=== PATIENT | female | born 1935 | race Caucasian/White ===

== ENCOUNTER → 2017-01-20 | Outpatient (CLI) | payer OTHER ==
[~2017-01-20] MED LIST: ATEN50TA PO; HYDR25TA4 PO; LEVO112T4 PO
[2017-01-20 15:53] LABS: BUN/Creatinine Ratio 20.5; Bilirubin, Total 0.5 mg/dL (0.2-1.0); Calcium 9.5 mg/dL (8.5-10.1); Potassium 3.6 mmol/L (3.5-5.1); Total Protein 7.7 g/dL (6.4-8.2)
== END | disposition home or self-care (01) ==
LOC: LAB 15:00
DX: C73 Malignant neoplasm of thyroid gland (principal); E03.9 Hypothyroidism, unspecified
CPT/HCPCS: 36415; 80053; 84439; 84443; 86800

== ENCOUNTER 2017-05-27 18:08 | Emergency (ER) | payer OTHER ==
[~2017-05-27] VITALS: Ht 167.6 cm; Wt 68.0 kg
[~2017-05-27 18:08] MED LIST changes: +CALC0.5C PO
[2017-05-27 20:10] LABS: Basophils # (auto) 0 uL; Eosinophils # (auto) 0.1 uL; Eosinophils % (auto) 0.9 % (0.0-7.0); Mean Corpuscular Volume 64.6 fL (80.0-100.0); Monocytes # (auto) 0.1 uL; Neutrophils # (auto) 6.7 uL; White Blood Cell 7.1 10^3/uL (4.4-10.8)
[2017-05-27 20:17] LABS: Basophils % (auto) 0.1 % (0.0-2.0); Hematocrit 36.9 % (36.0-46.0); Hemoglobin 11.8 g/dL (12.2-16.2); Lymphocytes # (auto) 0.3 uL; Lymphocytes % (auto) 3.7 % (10.0-50.0); Mean Corpuscular Hemoglobin 20.6 pg (28.0-32.0); Mean Corpuscular Hgb Conc. 31.9 g/dL (32.0-36.0); Monocytes % (auto) 1.6 % (0.0-12.0); Neutrophils % (auto) 93.7 % (37.0-80.0); Platelet Count (auto) 217 10^3/uL (140-450); Red Blood Cells 5.71 10^6/uL (4.0-5.20); Red Cell Distribution Width 17.5 % (11.8-14.3)
[2017-05-27 20:19] LABS: Potassium 3.8 mmol/L (3.5-5.1)
[2017-05-27 20:20] LABS: Albumin 3.3 g/dL (3.4-5.0); BUN/Creatinine Ratio 23.8; Calcium 8.2 mg/dL (8.5-10.1)
[2017-05-27 20:22] LABS: Bilirubin, Total 0.7 mg/dL (0.2-1.0); Total Protein 6.5 g/dL (6.4-8.2)
[2017-05-27 20:24] LABS: INR 1.04 (0.9-1.15); Partial Thromboplastin Time 25.9 sec (22.64-33.71); Prothrombin Time 11.3 sec (9.37-12.3)
[2017-05-28 07:27] VITALS: BP 105/47
== END 2017-05-28 07:43 | disposition short-term general hospital (02) ==
LOC: EDBD 18:08 → ER 18:16
DX: I62.9 Nontraumatic intracranial hemorrhage, unspecified (principal); R42 Dizziness and giddiness; I48.91 Unspecified atrial fibrillation; I10 Essential (primary) hypertension; E07.9 Disorder of thyroid, unspecified; Z86.73 Personal history of transient ischemic attack (TIA), and cerebral infarction without residual deficits; Z90.49 Acquired absence of other specified parts of digestive tract; Z90.710 Acquired absence of both cervix and uterus
CPT/HCPCS: 36415; 70450; 80053; 82962; 83880; 84484; 85025; 85379; 85610; 85730; 93005; 99285; J7030

== ENCOUNTER 2017-07-21 10:44 | Inpatient (IN) | payer OTHER ==
[~2017-07-21] VITALS: Ht 165.1 cm; Wt 58.2 kg
[2017-07-21 11:45] LABS: Mean Corpuscular Hemoglobin 20.2 pg (28.0-32.0); Platelet Count (auto) 206 10^3/uL (140-450); Red Blood Cells 5.87 10^6/uL (4.0-5.20)
[2017-07-21 11:47] LABS: Hematocrit 37.3 % (36.0-46.0); Hemoglobin 11.8 g/dL (12.2-16.2); Mean Corpuscular Hgb Conc. 31.7 g/dL (32.0-36.0); Mean Corpuscular Volume 63.6 fL (80.0-100.0); Red Cell Distribution Width 18.7 % (11.8-14.3); White Blood Cell 5.5 10^3/uL (4.4-10.8)
[2017-07-21 11:49] LABS: Basophils % (manual) 0 (0.0-2.0); Blast Cells 0; Metamyelocytes % 0; Myelocytes % 0; Promyelocytes % 0; Reactive Lymphocytes 0
[2017-07-21 12:04] LABS: Prothrombin Time 10.7 sec (9.27-12.13)
[2017-07-21 12:07] LABS: BUN/Creatinine Ratio 14.5; Potassium 3.6 mmol/L (3.5-5.1)
[2017-07-21 12:08] LABS: Albumin 3.7 g/dL (3.4-5.0); Bilirubin, Total 0.6 mg/dL (0.2-1.0); Calcium 9.1 mg/dL (8.5-10.1); Magnesium 2.4 mg/dL (1.6-2.6); Total Protein 7.1 g/dL (6.4-8.2)
[2017-07-21 12:27] LABS: Band Neutrophils % (manual) 1; Eosinophils % (manual) 5 (0-7); Lymphocytes % (manual) 35 (10.0-50.0); Monocytes % (manual) 4 (0-12)
[2017-07-21] MEDS ORDERED: MORPHINE SULFATE 10 MG/ML INJ 1ML SDV IV PRN (12:30)
[2017-07-21] MEDS ORDERED: NITROGLYCERIN 0.4 MG SL TAB SL PRN (12:30)
[2017-07-21] MEDS ORDERED: ONDANSETRON HCL 4 MG/2 ML VIAL IV PRN (12:30)
[2017-07-21] MEDS ORDERED: SODIUM CHLORIDE 0.9% 1,000 ML IV SCH (12:30)
[2017-07-21] MEDS ORDERED: ACETAMINOPHEN 325 MG TAB PO PRN (12:30)
[2017-07-21 13:17] LABS: Urine Bacteria FEW /hpf (None Seen); Urine Blood Negative /uL (Negative); Urine Mucus FEW (None Seen); Urine Specific Gravity 1.008 (1.001-1.035); Urine WBC 1 /hpf (0 - 5)
[2017-07-21] MEDS: ASPIRIN-DIPYRIDAMOLE (25/200MG) CAPSULE PO SCH ×2 (13:19→22:12)
[2017-07-21 18:24] VITALS: BP 143/72
[2017-07-21 20:00] VITALS: BP 143/57
[2017-07-21 22:00] VITALS: BP 143/57
[2017-07-21] MEDS ORDERED: ATORVASTATIN 20 MG TAB PO SCH (22:00)
[2017-07-22 05:00] VITALS: BP 127/74
[2017-07-22] MEDS ORDERED: LEVOTHYROXINE SODIUM 100 MCG TAB PO SCH (07:00)
[2017-07-22 07:16] LABS: Basophils # (auto) 0 uL; Mean Corpuscular Hemoglobin 20.5 pg (28.0-32.0); Red Blood Cells 5.86 10^6/uL (4.0-5.20); White Blood Cell 6.5 10^3/uL (4.4-10.8)
[2017-07-22 07:18] LABS: Basophils % (auto) 0.5 % (0.0-2.0); Eosinophils # (auto) 0.9 uL; Eosinophils % (auto) 13.4 % (0.0-7.0); Hematocrit 37.4 % (36.0-46.0); Lymphocytes % (auto) 31.2 % (10.0-50.0); Mean Corpuscular Hgb Conc. 32.1 g/dL (32.0-36.0); Mean Corpuscular Volume 63.8 fL (80.0-100.0); Monocytes # (auto) 0.6 uL; Monocytes % (auto) 8.7 % (0.0-12.0); Neutrophils % (auto) 46.2 % (37.0-80.0); Nucleated Red Blood Cells % 0.1 %; Platelet Count (auto) 198 10^3/uL (140-450); Red Cell Distribution Width 18.3 % (11.8-14.3)
[2017-07-22 07:24] LABS: BUN/Creatinine Ratio 16.1; Calcium 9.2 mg/dL (8.5-10.1); Potassium 3.5 mmol/L (3.5-5.1)
[2017-07-22 09:00] VITALS: BP 137/65
[2017-07-22] MEDS ORDERED: ATENOLOL 50 MG TAB PO SCH (10:00)
[2017-07-22] MEDS: ASPIRIN-DIPYRIDAMOLE (25/200MG) CAPSULE PO SCH (10:31)
[2017-07-22 13:00] VITALS: BP 145/54
[2017-07-22] MEDS ORDERED: AGG25C PO (16:02)
== END 2017-07-22 16:28 | disposition home or self-care (01) | DRG 65 ==
LOC: ER 10:50 → TELE 10:51 → TELE-CENTR 15:23
PROVIDERS: ADMIT Internal Medicine; ATTEND Internal Medicine
DX: I63.9 Cerebral infarction, unspecified (principal); G81.94 Hemiplegia, unspecified affecting left nondominant side; I48.91 Unspecified atrial fibrillation; D64.9 Anemia, unspecified; N18.3 Chronic kidney disease, stage 3 (moderate); I12.9 Hypertensive chronic kidney disease with stage 1 through stage 4 chronic kidney disease, or unspecified chronic kidney disease; Z53.29 Procedure and treatment not carried out because of patient's decision for other reasons; E78.5 Hyperlipidemia, unspecified; E03.9 Hypothyroidism, unspecified; Z79.899 Other long term (current) drug therapy; Z80.1 Family history of malignant neoplasm of trachea, bronchus and lung; Z82.49 Family history of ischemic heart disease and other diseases of the circulatory system; Z85.850 Personal history of malignant neoplasm of thyroid; Z90.710 Acquired absence of both cervix and uterus; Z88.0 Allergy status to penicillin; Z90.49 Acquired absence of other specified parts of digestive tract; Z90.89 Acquired absence of other organs; Z85.89 Personal history of malignant neoplasm of other organs and systems; H91.93 Unspecified hearing loss, bilateral
CPT/HCPCS: 36415; 70450; 70551; 80048; 80053; 81001; 83735; 84484; 85007; 85025; 85027; 85379; 85610; 85730; 87086; 93005; 94761; 97163

== ENCOUNTER 2019-06-02 14:06 | Inpatient (IN) | payer OTHER ==
[~2019-06-02] VITALS: Ht 160 cm; Wt 59.5 kg
[~2019-06-02 14:06] MED LIST changes: +AGG25C PO; +ATOR20TA50 PO; +CALC0.25 PO; -CALC0.5C PO; -LEVO112T4 PO; +LEVO88TA4 PO
[2019-06-02 15:10] LABS: Basophils # (auto) 0 10 ^3/uL (0-0.2); Eosinophils # (auto) 0 10 ^3/uL (0-0.8); Eosinophils % (auto) 0.1 % (0.0-7.0); Hemoglobin 12.6 g/dL (12.2-16.2); Lymphocytes # (auto) 2.2 10 ^3/uL (0.4-5.4); Neutrophils # (auto) 6.5 10 ^3/uL (1.6-8.6)
[2019-06-02 15:12] LABS: Basophils % (auto) 0.3 % (0.0-2.0); Hematocrit 39.2 % (36.0-46.0); Lymphocytes % (auto) 24.3 % (10.0-50.0); Mean Corpuscular Hemoglobin 20.9 pg (28.0-32.0); Mean Corpuscular Hgb Conc. 32.2 g/dL (32.0-36.0); Mean Corpuscular Volume 64.8 fL (80.0-100.0); Monocytes # (auto) 0.4 10 ^3/uL (0-1.3); Monocytes % (auto) 4.3 % (0.0-12.0); Nucleated Red Blood Cells % 0.2 %; Platelet Count (auto) 202 10^3/uL (140-450); Red Blood Cells 6.05 10^6/uL (4.0-5.20); Red Cell Distribution Width 17.9 % (11.8-14.3); White Blood Cell 9.1 10^3/uL (4.4-10.8)
[2019-06-02 15:29] LABS: Albumin 3.7 g/dL (3.4-5.0); Calcium 8.1 mg/dL (8.5-10.1); Potassium 3.4 mmol/L (3.5-5.1)
[2019-06-02 15:32] LABS: Bilirubin, Total 0.8 mg/dL (0.2-1.0); Total Protein 6.8 g/dL (6.4-8.2)
[2019-06-02] MEDS ORDERED: MORPHINE SULF INJ 2 MG/ML SYRINGE 1ML IV PRN ×2 (19:00)
[2019-06-02] MEDS ORDERED: ONDANSETRON HCL 4 MG/2 ML VIAL IV PRN (19:00)
[2019-06-02] MEDS ORDERED: SOD CHL 0.9%/ KCL 20MEQ 1,000 ML IV ONE (19:00)
[2019-06-02] MEDS ORDERED: ACETAMINOPHEN 500 MG TAB PO PRN (19:00)
[2019-06-02] MEDS ORDERED: HYDROcodone-ACET 5/325MG TAB PO PRN (19:00)
[2019-06-02] MEDS ORDERED: NITROGLYCERIN 0.4 MG SL TAB SL PRN (19:00)
[2019-06-02] MEDS ORDERED: hydrALAZINE HCL 20 MG/ML VL IV PRN (19:00)
[2019-06-02 20:54] LABS: Urine Bacteria FEW /hpf (None Seen); Urine Blood Negative /uL (Negative); Urine Hyaline Cast MOD /lpf (0 - 2); Urine Mucus FEW (None Seen); Urine Specific Gravity 1.016 (1.001-1.035); Urine WBC 54 /hpf (0 - 5)
[2019-06-02] MEDS: SODIUM CHLORIDE 0.9% 1,000 ML IV SCH (22:00)
[2019-06-02] MEDS: cefTRIAXone 1GM/50ML D5W 50 ML IV SCH (23:02)
[2019-06-02] MEDS: ASPIRIN-DIPYRIDAMOLE (25/200MG) CAPSULE PO SCH (23:03)
[2019-06-03] VITALS: BP 117/66
[2019-06-03 05:00] VITALS: BP 113/68
[2019-06-03 05:45] LABS: Basophils # (auto) 0 10 ^3/uL (0-0.2); Basophils % (auto) 0.1 % (0.0-2.0); Monocytes # (auto) 0.8 10 ^3/uL (0-1.3)
[2019-06-03 05:49] LABS: Eosinophils # (auto) 0.1 10 ^3/uL (0-0.8); Eosinophils % (auto) 0.5 % (0.0-7.0); Hematocrit 33.6 % (36.0-46.0); Hemoglobin 11.1 g/dL (12.2-16.2); Lymphocytes # (auto) 3.1 10 ^3/uL (0.4-5.4); Lymphocytes % (auto) 29.1 % (10.0-50.0); Mean Corpuscular Hemoglobin 21.3 pg (28.0-32.0); Mean Corpuscular Volume 64.6 fL (80.0-100.0); Monocytes % (auto) 7.2 % (0.0-12.0); Neutrophils # (auto) 6.8 10 ^3/uL (1.6-8.6); Neutrophils % (auto) 63.1 % (37.0-80.0); Nucleated Red Blood Cells % 0.4 %; Platelet Count (auto) 185 10^3/uL (140-450); Red Blood Cells 5.19 10^6/uL (4.0-5.20); Red Cell Distribution Width 17.9 % (11.8-14.3); White Blood Cell 10.8 10^3/uL (4.4-10.8)
[2019-06-03 06:11] LABS: Potassium 3.3 mmol/L (3.5-5.1)
[2019-06-03 06:15] LABS: BUN/Creatinine Ratio 14.4; Calcium 7.3 mg/dL (8.5-10.1)
[2019-06-03] MEDS: SODIUM CHLORIDE 0.9% 1,000 ML IV SCH ×2 (08:50→18:44)
[2019-06-03 08:59] VITALS: BP 104/51
[2019-06-03] MEDS ORDERED: ASPirin 81 mg TAB PO SCH (10:00)
[2019-06-03] MEDS: cefTRIAXone 1GM/50ML D5W 50 ML IV SCH (10:07)
[2019-06-03] MEDS: ASPIRIN-DIPYRIDAMOLE (25/200MG) CAPSULE PO SCH ×2 (10:07→22:01)
[2019-06-03 13:18] VITALS: BP 102/53
[2019-06-03] MEDS ORDERED: POTASSIUM EFFERVESENT TAB 25 MEQ PO ONE (14:45)
[2019-06-03 16:57] VITALS: BP 119/62
[2019-06-03 22:00] VITALS: BP 128/67
[2019-06-03] MEDS ORDERED: ATORVASTATIN 20 MG TAB PO SCH (22:00)
[2019-06-04 05:00] VITALS: BP 139/67
[2019-06-04] MEDS: SODIUM CHLORIDE 0.9% 1,000 ML IV SCH ×2 (05:00→14:00)
[2019-06-04 08:00] VITALS: BP 133/58
[2019-06-04 09:00] VITALS: BP 133/58
[2019-06-04 09:53] LABS: Folate (Folic Acid) 22.42 ng/mL (5.38-24)
[2019-06-04] MEDS: ASPIRIN-DIPYRIDAMOLE (25/200MG) CAPSULE PO SCH (10:08)
[2019-06-04] MEDS: cefTRIAXone 1GM/50ML D5W 50 ML IV SCH (10:08)
[2019-06-04] MEDS ORDERED: LEVO500T21 PO (11:41)
[2019-06-04 13:00] VITALS: BP 153/81
[2019-06-04 17:27] VITALS: BP 139/75
[2019-06-04 18:00] VITALS: BP 152/71
== END 2019-06-04 19:05 | disposition home health service (06) | DRG 682 ==
LOC: EDBD 14:06 → ER 14:06 → EDSEX 14:06 → TELE 14:07 → TELE-WESTW 23:17
PROVIDERS: ADMIT Hospitalist; ATTEND Internal Medicine
DX: N17.9 Acute kidney failure, unspecified (principal); G92 Toxic encephalopathy; N39.0 Urinary tract infection, site not specified; D68.59 Other primary thrombophilia; E87.6 Hypokalemia; I48.0 Paroxysmal atrial fibrillation; N18.3 Chronic kidney disease, stage 3 (moderate); I13.10 Hypertensive heart and chronic kidney disease without heart failure, with stage 1 through stage 4 chronic kidney disease, or unspecified chronic kidney disease; E78.5 Hyperlipidemia, unspecified; E03.9 Hypothyroidism, unspecified; G30.9 Alzheimer's disease, unspecified; F02.80 Dementia in other diseases classified elsewhere, unspecified severity, without behavioral disturbance, psychotic disturbance, mood disturbance, and anxiety; Z82.49 Family history of ischemic heart disease and other diseases of the circulatory system; Z86.73 Personal history of transient ischemic attack (TIA), and cerebral infarction without residual deficits; Z85.850 Personal history of malignant neoplasm of thyroid; Z90.710 Acquired absence of both cervix and uterus; Z80.1 Family history of malignant neoplasm of trachea, bronchus and lung; Z79.899 Other long term (current) drug therapy; Z53.20 Procedure and treatment not carried out because of patient's decision for unspecified reasons; Z88.0 Allergy status to penicillin; Z88.2 Allergy status to sulfonamides
CPT/HCPCS: 36415; 70450; 70551; 71045; 80048; 80053; 81001; 82607; 82746; 82962; 84443; 85025; 87086; 93005; 93306; 93886; 97110; 97116; 97163; 97530; G0378; J0696

== ENCOUNTER 2020-04-05 10:50 | Emergency (ER) | payer OTHER ==
[~2020-04-05] VITALS: Ht 160 cm; Wt 54.4 kg
[~2020-04-05 10:50] MED LIST changes: +LEVO500T31 PO
[2020-04-05 10:52] VITALS: BP 153/69
== END 2020-04-05 14:14 | disposition home or self-care (01) ==
LOC: ER 10:50
DX: S92.354A Nondisplaced fracture of fifth metatarsal bone, right foot, initial encounter for closed fracture (principal); Z88.0 Allergy status to penicillin; Z88.2 Allergy status to sulfonamides; X50.1XXA Overexertion from prolonged static or awkward postures, initial encounter; Y93.89 Activity, other specified; Y92.89 Other specified places as the place of occurrence of the external cause; Y99.8 Other external cause status
CPT/HCPCS: 29515; 73630

== ENCOUNTER 2020-08-13 20:03 | Emergency (ER) | payer OTHER ==
[~2020-08-13] VITALS: Ht 160 cm; Wt 58.5 kg
[2020-08-13 20:18] VITALS: BP 119/56
== END 2020-08-13 23:10 | disposition left against medical advice (07) ==
LOC: ER 20:08
DX: M25.572 Pain in left ankle and joints of left foot (principal); R22.42 Localized swelling, mass and lump, left lower limb; Z53.21 Procedure and treatment not carried out due to patient leaving prior to being seen by health care provider; X50.9XXA Other and unspecified overexertion or strenuous movements or postures, initial encounter; Y93.89 Activity, other specified; Y92.89 Other specified places as the place of occurrence of the external cause; Y99.8 Other external cause status
CPT/HCPCS: 73610

== ENCOUNTER 2022-03-29 15:45 | Inpatient (IN) | payer OTHER ==
[~2022-03-29] VITALS: Ht 2.5 cm; Wt 58.6 kg
[2022-03-29 21:23] VITALS: BP 138/72
[2022-03-29] MEDS ORDERED: HYDROcodone-ACET 5/325MG TAB PO PRN (21:30)
[2022-03-29] MEDS ORDERED: ONDANSETRON HCL 4 MG/2 ML VIAL IV PRN (21:30)
[2022-03-29] MEDS ORDERED: SODIUM CHLORIDE 0.9% 1,000 ML IV SCH (21:30)
[2022-03-29] MEDS ORDERED: DOCUSATE SOD 100 MG CAP PO PRN (21:30)
[2022-03-29] MEDS ORDERED: ACETAMINOPHEN 325 MG TAB PO PRN (21:30)
[2022-03-29 22:34] LABS: Basophils # (auto) 0.1 10 ^3/uL (0-0.2); Eosinophils # (auto) 0.3 10 ^3/uL (0-0.8); Eosinophils % (auto) 2.4 % (0.0-7.0); Hematocrit 32.1 % (36.0-46.0); Hemoglobin 10.4 g/dL (12.2-16.2); Lymphocytes % (auto) 16.6 % (10.0-50.0); Mean Corpuscular Hemoglobin 20.4 pg (28.0-32.0); Mean Corpuscular Hgb Conc. 32.5 g/dL (32.0-36.0); Mean Corpuscular Volume 62.7 fL (80.0-100.0); Monocytes % (auto) 8.5 % (0.0-12.0); Neutrophils # (auto) 8.5 10 ^3/uL (1.6-8.6); Neutrophils % (auto) 71.5 % (37.0-80.0); Nucleated Red Blood Cells % 0.2 %; Red Blood Cells 5.12 10^6/uL (4.0-5.20); White Blood Cell 11.9 10^3/uL (4.4-10.8)
[2022-03-29 22:52] LABS: Albumin 2.7 g/dL (3.4-5.0); BUN/Creatinine Ratio 41.1; Calcium 6.8 mg/dL (8.5-10.1)
[2022-03-29 22:55] LABS: Total Protein 5.3 g/dL (6.4-8.2)
[2022-03-29 22:58] LABS: Potassium 2.9 mmol/L (3.5-5.1)
[2022-03-29] MEDS: ASPIRIN-DIPYRIDAMOLE (25/200MG) CAPSULE PO SCH (22:58)
[2022-03-30] MEDS ORDERED: POTASSIUM CHL 20 Meq TABLET PO ONE ×2 (00:30→10:00)
[2022-03-30] MEDS ORDERED: POTASSIUM EFFERVESENT TAB 25 MEQ PO ONE (01:00)
[2022-03-30 05:00] VITALS: BP 123/62
[2022-03-30 06:12] LABS: Basophils # (auto) 0 10 ^3/uL (0-0.2); Basophils % (auto) 0.1 % (0.0-2.0); Eosinophils # (auto) 0.2 10 ^3/uL (0-0.8); Eosinophils % (auto) 2.1 % (0.0-7.0); Hematocrit 30.4 % (36.0-46.0); Hemoglobin 10.1 g/dL (12.2-16.2); Lymphocytes # (auto) 2.3 10 ^3/uL (0.4-5.4); Lymphocytes % (auto) 21.6 % (10.0-50.0); Mean Corpuscular Hemoglobin 20.6 pg (28.0-32.0); Mean Corpuscular Hgb Conc. 33.2 g/dL (32.0-36.0); Mean Corpuscular Volume 62.2 fL (80.0-100.0); Monocytes # (auto) 0.9 10 ^3/uL (0-1.3); Monocytes % (auto) 8.6 % (0.0-12.0); Neutrophils # (auto) 7.1 10 ^3/uL (1.6-8.6); Neutrophils % (auto) 67.6 % (37.0-80.0); Nucleated Red Blood Cells % 0.2 %; Red Cell Distribution Width 17.8 % (11.8-14.3); White Blood Cell 10.6 10^3/uL (4.4-10.8)
[2022-03-30] MEDS: LEVOTHYROXINE SODIUM 88 MCG TAB PO SCH (06:20)
[2022-03-30 06:23] LABS: Potassium 3.3 mmol/L (3.5-5.1)
[2022-03-30 06:33] LABS: Albumin 2.6 g/dL (3.4-5.0); BUN/Creatinine Ratio 42.2; Bilirubin, Total 1.3 mg/dL (0.2-1.0); Calcium 6.3 mg/dL (8.5-10.1); Total Protein 4.8 g/dL (6.4-8.2)
[2022-03-30 09:00] VITALS: BP 122/70
[2022-03-30] MEDS: ASPIRIN-DIPYRIDAMOLE (25/200MG) CAPSULE PO SCH ×2 (09:31→21:19)
[2022-03-30] MEDS: CALCITRIOL 0.25 MCG CAP PO SCH (09:31)
[2022-03-30] MEDS: ATORVASTATIN 20 MG TAB PO SCH (09:32)
[2022-03-30] MEDS: HCTZ 25 MG TAB PO SCH (09:33)
[2022-03-30] MEDS: ATENOLOL 50 MG TAB PO SCH (09:35)
[2022-03-30] MEDS ORDERED: PANTOPRAZOLE 40 MG/10 ML VIAL INJ IV SCH (10:00)
[2022-03-30] MEDS ORDERED: MAGNESIUM OXIDE 400 MG TAB PO ONE (10:00)
[2022-03-30] MEDS: ENOXAPARIN SOD 40 MG/0.4 ML SYRINGE SC SCH (10:58)
[2022-03-30 13:00] VITALS: BP 133/69
[2022-03-30 17:00] VITALS: BP 130/71
[2022-03-30 22:00] VITALS: BP 136/82
[2022-03-31 05:00] VITALS: BP 117/60
[2022-03-31] MEDS: LEVOTHYROXINE SODIUM 88 MCG TAB PO SCH (06:04)
[2022-03-31 06:36] LABS: Potassium 3.6 mmol/L (3.5-5.1)
[2022-03-31 06:44] LABS: BUN/Creatinine Ratio 30.3; Calcium 6.5 mg/dL (8.5-10.1); Magnesium 1.8 mg/dL (1.6-2.6)
[2022-03-31] MEDS: ENOXAPARIN SOD 40 MG/0.4 ML SYRINGE SC SCH (10:16)
[2022-03-31] MEDS: CALCITRIOL 0.25 MCG CAP PO SCH (10:16)
[2022-03-31] MEDS: ATORVASTATIN 20 MG TAB PO SCH (10:16)
[2022-03-31] MEDS: ATENOLOL 50 MG TAB PO SCH (10:18)
[2022-03-31] MEDS: HCTZ 25 MG TAB PO SCH (10:19)
[2022-03-31] MEDS: ASPIRIN-DIPYRIDAMOLE (25/200MG) CAPSULE PO SCH (10:19)
[2022-03-31 11:27] LABS: Urine Bacteria NONE SEEN /hpf (None Seen); Urine Blood Negative /uL (Negative); Urine Specific Gravity 1.008 (1.001-1.035); Urine WBC 2 /hpf (0 - 5)
[2022-03-31 16:53] VITALS: BP 143/69
[2022-03-31 16:56] VITALS: BP 131/68
== END 2022-03-31 18:17 | DRG 536 ==
LOC: UNDOADMIN 20:00 → TELE-CENTR 20:00 → CENTRAL 21:27
PROVIDERS: ADMIT Registered Nurse; ATTEND Internal Medicine
DX: S32.592A Other specified fracture of left pubis, initial encounter for closed fracture (principal); I69.351 Hemiplegia and hemiparesis following cerebral infarction affecting right dominant side; E78.5 Hyperlipidemia, unspecified; I10 Essential (primary) hypertension; F03.90 Unspecified dementia, unspecified severity, without behavioral disturbance, psychotic disturbance, mood disturbance, and anxiety; Z60.2 Problems related to living alone; Z20.822 Contact with and (suspected) exposure to COVID-19; W18.39XA Other fall on same level, initial encounter; Z80.1 Family history of malignant neoplasm of trachea, bronchus and lung; Z82.49 Family history of ischemic heart disease and other diseases of the circulatory system; Y93.89 Activity, other specified; Y92.89 Other specified places as the place of occurrence of the external cause; Y99.8 Other external cause status; Z88.0 Allergy status to penicillin; Z88.8 Allergy status to other drugs, medicaments and biological substances
CPT/HCPCS: 36415; 80048; 80053; 81001; 82306; 83735; 84443; 85025; 87426; C9113; G0378

== ENCOUNTER 2022-07-30 21:56 | Inpatient (IN) | payer OTHER ==
[~2022-07-30] VITALS: Ht 157.5 cm; Wt 57.1 kg
[~2022-07-30 21:56] MED LIST changes: -LEVO500T31 PO
[2022-07-30 22:57] LABS: Hemoglobin 13.7 g/dL (12.2-16.2); Lymphocytes # (auto) 2.2 10 ^3/uL (0.4-5.4); Red Cell Distribution Width 17.8 % (11.8-14.3); White Blood Cell 7.6 10^3/uL (4.4-10.8)
[2022-07-30 22:58] LABS: Basophils # (auto) 0.1 10 ^3/uL (0-0.2); Basophils % (auto) 0.9 % (0.0-2.0); Eosinophils # (auto) 0.7 10 ^3/uL (0-0.8); Eosinophils % (auto) 9.1 % (0.0-7.0); Hematocrit 41.2 % (36.0-46.0); Lymphocytes % (auto) 29.1 % (10.0-50.0); Mean Corpuscular Hemoglobin 20.3 pg (28.0-32.0); Mean Corpuscular Hgb Conc. 33.3 g/dL (32.0-36.0); Mean Corpuscular Volume 60.9 fL (80.0-100.0); Monocytes # (auto) 0.9 10 ^3/uL (0-1.3); Monocytes % (auto) 11.3 % (0.0-12.0); Neutrophils # (auto) 3.8 10 ^3/uL (1.6-8.6); Neutrophils % (auto) 49.6 % (37.0-80.0); Nucleated Red Blood Cells % 0.2 %; Red Blood Cells 6.76 10^6/uL (4.0-5.20)
[2022-07-30 23:17] LABS: Albumin 4.1 g/dL (3.4-5.0); Magnesium 2.1 mg/dL (1.6-2.6); Potassium 3.1 mmol/L (3.5-5.1)
[2022-07-30 23:21] LABS: BUN/Creatinine Ratio 15.8 (10.0-20.0); Bilirubin, Total 1.2 mg/dL (0.2-1.0); Total Protein 7.8 g/dL (6.4-8.2)
[2022-07-30 23:29] LABS: Urine Bacteria NONE SEEN /hpf (None Seen); Urine Blood Negative /uL (Negative); Urine Specific Gravity 1.004 (1.001-1.035); Urine WBC 2 /hpf (0 - 5)
[2022-07-30 23:36] LABS: INR 1.09 (0.9-1.15); Partial Thromboplastin Time 30.8 sec (24.6-33.4)
[2022-07-31] MEDS ORDERED: ASPirin 325 MG TAB PO ONE (00:15)
[2022-07-31] MEDS ORDERED: SODIUM CHLORIDE 0.9% 500 ML IV ONE (00:15)
[2022-07-31] MEDS ORDERED: ENOXAPARIN SOD 60 MG/0.6 ML SYRINGE SC ONE (00:15)
[2022-07-31] MEDS ORDERED: METOPROLOL TARTRATE 1MG/1ML-5ML VIAL IV ONE (00:15)
[2022-07-31] MEDS ORDERED: POTASSIUM EFFERVESENT TAB 25 MEQ PO ONE (00:15)
[2022-07-31] MEDS ORDERED: ONDANSETRON HCL 4 MG/2 ML VIAL IV PRN (04:30)
[2022-07-31] MEDS ORDERED: DOCUSATE SOD 100 MG CAP PO PRN (04:30)
[2022-07-31] MEDS ORDERED: ACETAMINOPHEN 325 MG TAB PO PRN (04:30)
[2022-07-31] MEDS ORDERED: hydrALAZINE HCL 20 MG/ML VL IV PRN (04:30)
[2022-07-31] MEDS ORDERED: SODIUM CHLORIDE 0.9% 1,000 ML IV SCH (04:30)
[2022-07-31] MEDS ORDERED: HYDROcodone-ACET 5/325MG TAB PO PRN (04:30)
[2022-07-31] MEDS ORDERED: AZITHROMYCIN 500MG/ 250ML 250 ML IV ONE (05:00)
[2022-07-31] MEDS ORDERED: MORPHINE SULFATE INJ 2 MG/ml SYRG IV PRN (06:30)
[2022-07-31] MEDS ORDERED: NITROGLYCERIN 0.4 MG SL TAB SL PRN (06:30)
[2022-07-31] MEDS: LEVOTHYROXINE SODIUM 88 MCG TAB PO SCH (06:39)
[2022-07-31 06:53] LABS: Basophils # (auto) 0 10 ^3/uL (0-0.2); Hemoglobin 12.8 g/dL (12.2-16.2); Lymphocytes # (auto) 2.5 10 ^3/uL (0.4-5.4); Lymphocytes % (auto) 40.7 % (10.0-50.0)
[2022-07-31 06:59] LABS: Basophils % (auto) 0.2 % (0.0-2.0); Eosinophils # (auto) 0.7 10 ^3/uL (0-0.8); Hematocrit 37.7 % (36.0-46.0); Mean Corpuscular Hemoglobin 20.3 pg (28.0-32.0); Mean Corpuscular Hgb Conc. 33.9 g/dL (32.0-36.0); Mean Corpuscular Volume 60.1 fL (80.0-100.0); Monocytes # (auto) 0.5 10 ^3/uL (0-1.3); Monocytes % (auto) 8.7 % (0.0-12.0); Neutrophils # (auto) 2.5 10 ^3/uL (1.6-8.6); Neutrophils % (auto) 39.4 % (37.0-80.0); Nucleated Red Blood Cells % 0.2 %; Red Blood Cells 6.28 10^6/uL (4.0-5.20); Red Cell Distribution Width 17.9 % (11.8-14.3); White Blood Cell 6.2 10^3/uL (4.4-10.8)
[2022-07-31 07:16] LABS: Potassium 3.8 mmol/L (3.5-5.1)
[2022-07-31 07:26] LABS: Albumin 3.8 g/dL (3.4-5.0); BUN/Creatinine Ratio 17.2 (10.0-20.0); Calcium 7.5 mg/dL (8.5-10.1); Total Protein 6.5 g/dL (6.4-8.2)
[2022-07-31] MEDS: ASPirin 81 mg TAB PO SCH (08:42)
[2022-07-31] MEDS: METOPROLOL TARTRATE 25 MG TAB PO SCH ×2 (08:43→21:50)
[2022-07-31] MEDS: AZITHROMYCIN 500MG/ 250ML 250 ML IV SCH (20:32)
[2022-07-31] MEDS: ATORVASTATIN 20 MG TAB PO SCH (21:50)
[2022-08-01] MEDS: LEVOTHYROXINE SODIUM 88 MCG TAB PO SCH (06:33)
[2022-08-01 07:51] LABS: Basophils # (auto) 0 10 ^3/uL (0-0.2); Hemoglobin 12.7 g/dL (12.2-16.2); Mean Corpuscular Volume 60.7 fL (80.0-100.0); Monocytes # (auto) 0.7 10 ^3/uL (0-1.3)
[2022-08-01 07:55] LABS: Basophils % (auto) 0.4 % (0.0-2.0); Eosinophils # (auto) 0.5 10 ^3/uL (0-0.8); Eosinophils % (auto) 8.4 % (0.0-7.0); Hematocrit 37.7 % (36.0-46.0); Lymphocytes # (auto) 2.5 10 ^3/uL (0.4-5.4); Lymphocytes % (auto) 40.6 % (10.0-50.0); Mean Corpuscular Hemoglobin 20.4 pg (28.0-32.0); Mean Corpuscular Hgb Conc. 33.7 g/dL (32.0-36.0); Monocytes % (auto) 11.3 % (0.0-12.0); Neutrophils # (auto) 2.4 10 ^3/uL (1.6-8.6); Neutrophils % (auto) 39.3 % (37.0-80.0); Nucleated Red Blood Cells % 0.8 %; Red Blood Cells 6.21 10^6/uL (4.0-5.20); Red Cell Distribution Width 17.5 % (11.8-14.3); White Blood Cell 6.1 10^3/uL (4.4-10.8)
[2022-08-01 08:28] LABS: Potassium 3.4 mmol/L (3.5-5.1)
[2022-08-01] MEDS ORDERED: LISINOPRIL 20 MG TAB PO ONE (08:30)
[2022-08-01 08:34] LABS: Albumin 3.5 g/dL (3.4-5.0); BUN/Creatinine Ratio 15.3 (10.0-20.0); Calcium 7.3 mg/dL (8.5-10.1); Total Protein 6.6 g/dL (6.4-8.2)
[2022-08-01 10:40] VITALS: BP 149/87
[2022-08-01] MEDS: ASPirin 81 mg TAB PO SCH (10:45)
[2022-08-01] MEDS: METOPROLOL TARTRATE 25 MG TAB PO SCH ×2 (10:46→21:37)
[2022-08-01] MEDS: AZITHROMYCIN 500MG/ 250ML 250 ML IV SCH (21:30)
[2022-08-01] MEDS: ATORVASTATIN 20 MG TAB PO SCH (21:36)
[2022-08-02 05:00] VITALS: BP 131/65
[2022-08-02 06:32] LABS: BUN/Creatinine Ratio 20.4 (10.0-20.0); Calcium 7.2 mg/dL (8.5-10.1); Potassium 3.6 mmol/L (3.5-5.1)
[2022-08-02] MEDS ORDERED: LEVOTHYROXINE SODIUM 100 MCG TAB PO SCH (07:00)
[2022-08-02 08:41] VITALS: BP 136/75
[2022-08-02] MEDS: ASPirin 81 mg TAB PO SCH (09:53)
[2022-08-02] MEDS: METOPROLOL TARTRATE 25 MG TAB PO SCH (09:55)
[2022-08-02] MEDS: LISINOPRIL 20 MG TAB PO SCH (10:00)
[2022-08-02] MEDS ORDERED: LEV100T PO (11:27)
[2022-08-02] MEDS ORDERED: LISI20TA56 PO (11:27)
[2022-08-02] MEDS ORDERED: METO25TA36 PO (11:27)
[2022-08-02 13:00] VITALS: BP 116/69
[2022-08-02 15:36] VITALS: BP 116/69
[2022-08-02 17:00] VITALS: BP 121/71
== END 2022-08-02 19:01 | disposition home or self-care (01) | DRG 304 ==
LOC: ER 21:56 → EDBD 21:56 → TELE 07-31 06:26 → TELE-WESTW 08-01 08:25
PROVIDERS: ADMIT Nurse Practitioner Family; ATTEND Internal Medicine Geriatric Medicine
DX: I16.1 Hypertensive emergency (principal); J18.9 Pneumonia, unspecified organism; E87.1 Hypo-osmolality and hyponatremia; J98.11 Atelectasis; E83.51 Hypocalcemia; E87.6 Hypokalemia; E87.8 Other disorders of electrolyte and fluid balance, not elsewhere classified; E03.9 Hypothyroidism, unspecified; R77.8 Other specified abnormalities of plasma proteins; R94.6 Abnormal results of thyroid function studies; I11.9 Hypertensive heart disease without heart failure; I48.91 Unspecified atrial fibrillation; Z79.899 Other long term (current) drug therapy; Z86.73 Personal history of transient ischemic attack (TIA), and cerebral infarction without residual deficits; Z88.0 Allergy status to penicillin; Z90.710 Acquired absence of both cervix and uterus
CPT/HCPCS: 36415; 71045; 80048; 80053; 81001; 83735; 83880; 84443; 84484; 85025; 85610; 85730; 93005; 96361; 96365; 96372; 97110; 97116; 97163; 97530; 99291; G0378

== ENCOUNTER 2022-08-06 14:59 | Emergency (ER) | payer OTHER ==
[~2022-08-06] VITALS: Ht 157.5 cm; Wt 54.5 kg
[~2022-08-06 14:59] MED LIST changes: -ATEN50TA PO; -HYDR25TA4 PO; +LEV100T PO; -LEVO88TA4 PO; +LISI20TA56 PO; +METO25TA36 PO
[2022-08-06 16:11] VITALS: BP 159/98
[2022-08-06 16:35] LABS: Basophils # (auto) 0 10 ^3/uL (0-0.2); Basophils % (auto) 0.7 % (0.0-2.0); Monocytes # (auto) 0.6 10 ^3/uL (0-1.3); Neutrophils # (auto) 2.9 10 ^3/uL (1.6-8.6); Nucleated Red Blood Cells % 0.2 %; White Blood Cell 6.7 10^3/uL (4.4-10.8)
[2022-08-06 16:37] LABS: Eosinophils # (auto) 0.8 10 ^3/uL (0-0.8); Eosinophils % (auto) 11.3 % (0.0-7.0); Hematocrit 39.7 % (36.0-46.0); Lymphocytes # (auto) 2.4 10 ^3/uL (0.4-5.4); Lymphocytes % (auto) 35.7 % (10.0-50.0); Mean Corpuscular Hgb Conc. 32.7 g/dL (32.0-36.0); Mean Corpuscular Volume 61.3 fL (80.0-100.0); Monocytes % (auto) 8.8 % (0.0-12.0); Neutrophils % (auto) 43.5 % (37.0-80.0); Red Blood Cells 6.48 10^6/uL (4.0-5.20); Red Cell Distribution Width 18.4 % (11.8-14.3)
[2022-08-06 16:50] LABS: Albumin 3.9 g/dL (3.4-5.0); Calcium 7.3 mg/dL (8.5-10.1); Magnesium 2.3 mg/dL (1.6-2.6)
[2022-08-06 16:55] LABS: Total Protein 7.5 g/dL (6.4-8.2)
[2022-08-06 17:01] LABS: Urine Bacteria NONE SEEN /hpf (None Seen); Urine Blood Negative /uL (Negative); Urine Specific Gravity 1.004 (1.001-1.035); Urine WBC 3 /hpf (0 - 5)
[2022-08-06 18:14] LABS: BUN/Creatinine Ratio 14.2 (10.0-20.0)
[2022-08-06] MEDS ORDERED: NITR-87 PO (18:35)
== END 2022-08-06 20:42 | disposition home or self-care (01) ==
LOC: ER 14:59
DX: I16.0 Hypertensive urgency (principal); I12.9 Hypertensive chronic kidney disease with stage 1 through stage 4 chronic kidney disease, or unspecified chronic kidney disease; N18.9 Chronic kidney disease, unspecified; I48.91 Unspecified atrial fibrillation; E78.5 Hyperlipidemia, unspecified; Z88.0 Allergy status to penicillin; Z91.040 Latex allergy status; Z88.2 Allergy status to sulfonamides; Z79.899 Other long term (current) drug therapy; Z86.73 Personal history of transient ischemic attack (TIA), and cerebral infarction without residual deficits; Z90.49 Acquired absence of other specified parts of digestive tract; Z90.710 Acquired absence of both cervix and uterus; Z90.89 Acquired absence of other organs
CPT/HCPCS: 36415; 80053; 81001; 83735; 85025